=== PATIENT | male | born 1980 | race Caucasian/White ===

== ENCOUNTER 2024-05-25 00:02 | Inpatient (IN) ==
[2024-05-25] MEDS: LORazepam 1 MG/1 ML SYR ED Inj Use ONE ×2 (00:22→01:00)
--- NOTE | 2024-05-25 00:22 | Emergency Department Note ---
Impression & Plan Alcohol withdrawal seizure with delirium, Hypomagnesemia Admit to the [facility] ED Provider Note NAME: LEONARD PUGA AGE: 43 SEX: Male INFORMANT: Patient ED PROVIDER(S): Mahogany Mckinnon DO CHIEF COMPLAINT: seizure PLAN: Disposition: admit to the [facility] MEDICAL DECISION MAKING: this is a 43-year-old male patient who presents to the emergency department after his girlfriend states that he had a seizure while in bed. EMS was called to the home and he was found to be in a postictal state. Blood sugar was 182. He has no history of seizures. Patient initially denied heavy alcohol use or daily alcohol use but once the girlfriend arrived and explained the patient drinks three fourths of a 1/5 of liquor a day. He has been doing this for a couple of months now. He did only have approximately 6 shots this morning and therefore his seizures are most likely alcohol withdrawal seizures. Laboratory studies reveal no leukocytosis or anemia. Glucose was 181. Magnesium was low at 1.4. Total bilirubin was elevated at 1.4. AST was 106 ALT is 98. As a result of the patient's seizures, he did suffer some trauma to the left side of his tongue and had bleeding from the mouth. Patient did suffer 2 falls in the bathroom in the girlfriend was unsure whether or not he struck his head. He went for CT scan of the brain to rule out trauma. No obvious trauma was noted although the scan was limited. Patient was treated with IV benzodiazepines and IV Keppra here in the ER. Seizure precautions were taken. Patient was monitored very closely. Care/management discussed with: nursing services manager, [facility] Hospitalist and the patient's Triage Nursing notes: reviewed and agree With them. Vital Signs: reviewed and remarkable for tachycardia Additional History obtained from: EMS and the patient's who is at the bedside Chronic Medical/Social Conditions affecting care: alcohol abuse Differential Diagnosis: drug abuse, alcohol abuse, alcohol withdrawal, epilepsy, intracranial hemorrhage, intracranial process, electrolyte abnormality Diagnostics, independently interpreted by me: ECG: sinus tachycardia at a rate of [address] segment elevation or signs of ischemia. There is no ectopy. Cardiac Monitoring: Sinus tachycardia at a rate of 112 Imaging studies: CT scan of the brain: As per stat rad HPI: 43 year old Male arrives for evaluation of seizure. EMS brought the patient to the emergency department for evaluation of seizure. Apparently the patient had a seizure during his sleep. It lasted for 1 minute. He then vomited. EMS found him in a postictal state. Girlfriend gave the history that he had been dizzy throughout the day. He fell in the shower twice. Patient has no recollection of this. He did have 6 shots around 11 AM this morning. Patient denies any other significant alcohol use other than once a week. 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 Pupils are Dilated round, and sluggishly reactive to light. Extraocular eye muscles are intact, and sclera are anicteric. Nose - moist nasal mucosa without discharge. Mouth - moist buccal mucosa. Oropharynx is nonerythematous and there is no tonsillar exudate or edema noted. there is trauma to the left side of his tongue. Neck: Supple; no JVD or cervical lymphadenopathy Heart: tachycardic rate and rhythm. There is a normal S1 and S2 with no murmurs, clicks, or gallops appreciated. Lungs: Clear to auscultation bilaterally with no wheezes, rales, or rhonchi. Abdomen: Soft, completely nontender, nondistended, with good bowel sounds. There are no palpable pulsatile masses or hepatosplenomegaly. There is no guarding, rigidity, or rebound noted. Extremities: No evidence of cyanosis, clubbing, or edema. There are easily palpable peripheral pulses. Skin: warm and dry with good turgor and no rashes. Multiple tattoos. Back: There is a contusion noted to the left scapula. Emergency department treatment: athletic monitor, IV normal saline bolus, supplemental oxygen, IV Ativan x 2, IV Keppra bolus, IV magnesium, IV banana bag emergency department course: the patient was evaluated in room C-4. A complete history and physical was performed. An order was placed for continuous cardiac monitoring. The patient was in a sinus tachycardia at a rate of 112. Seizure precautions were taken. Laboratory studies were drawn. The patient had a tonic-clonic seizure. Patient did bite his tongue again there was active bleeding from his mouth. The blood was cleared away from the mouth. He was given 2 mg of IV Ativan. He was loaded with IV Keppra. Patient was given an additional 1 mg of IV Ativan prior to going for CAT scan. He went for CT scan of the brain. Patient's girlfriend arrived at the bedside and was able to give a more detailed history for the patient. Patient was started on IV banana bag. He was started on IV magnesium as well as an IV normal saline drip. I discussed the case with the [facility] Hospitalist. I have personally spent greater than 65 minutes of critical care time in the direct management of this patient. This includes bedside care, interpretation of diagnostic studies, and testing, discussion with consultants, patient, and family members, and other required patient management activities. This 65 minutes is in excess of all separately billable procedures. Past Med/Surg History Problem List (Updated 05/25/24 @ 02:02 by Mahogany Mckinnon DO) Hypomagnesemia (Acute) Alcohol withdrawal seizure with delirium (Acute) Medical History No significant past medical history Surgical History No history of previous surgery Social History Smoking Status: Current every day smoker Preferred Language: Turkish Feels Safe at Home: Yes Allergies Allergies Allergy/AdvReac Type Severity Reaction Status Date / Time No Known Allergies Allergy Verified 05/25/24 00:35 Home Meds Home Medications Medication Instructions Recorded Confirmed No Known Home Medications 05/25/24 05/25/24 Results & Data (ED) Vital Signs Vital Signs - 24 hr 05/24/24 23:52 05/25/24 00:10 05/25/24 00:14 Temperature 37.2 C Temperature Source Oral Pulse Rate 118 H Pulse Rate from SpO2 Sensor Pulse Rhythm Regular Pulse Strength Normal Respiratory Rate 20 Respiratory Effort / Characteristics Non-Labored Respiratory Depth Normal Respiratory Pattern Regular Blood Pressure 165/105 H 157/106 H Blood Pressure Mean 125 125 Blood Pressure Position Lying Pulse Oximetry 93 96 Oxygen Delivery Method Room Air Room Air Sepsis Recent Fever Within 48 Hours No Sepsis New/Unexplained Change in Mental Status No Sepsis Action Taken by Nursing No Action Required 05/25/24 00:14 05/25/24 00:15 05/25/24 00:18 Temperature Temperature Source Pulse Rate 123 H Pulse Rate from SpO2 Sensor 122 H Pulse Rhythm Pulse Strength Respiratory Rate 20 Respiratory Effort / Characteristics Respiratory Depth Respiratory Pattern Blood Pressure 165/105 H Blood Pressure Mean 129 Blood Pressure Position Pulse Oximetry 96 94 Oxygen Delivery Method Room Air Room Air Sepsis Recent Fever Within 48 Hours Sepsis New/Unexplained Change in Mental Status Sepsis Action Taken by Nursing 05/25/24 00:22 05/25/24 00:24 05/25/24 00:30 Temperature Temperature Source Pulse Rate 129 H 89 Pulse Rate from SpO2 Sensor Pulse Rhythm Pulse Strength Respiratory Rate Respiratory Effort / Characteristics Respiratory Depth Respiratory Pattern Blood Pressure 174/99 H Blood Pressure Mean 119 Blood Pressure Position Pulse Oximetry Oxygen Delivery Method Sepsis Recent Fever Within 48 Hours Sepsis New/Unexplained Change in Mental Status Sepsis Action Taken by Nursing 05/25/24 00:32 05/25/24 00:38 05/25/24 00:39 Temperature Temperature Source Pulse Rate 119 H 120 H Pulse Rate from SpO2 Sensor 121 H Pulse Rhythm Pulse Strength Respiratory Rate 18 Respiratory Effort / Characteristics Respiratory Depth Respiratory Pattern Blood Pressure Blood Pressure Mean Blood Pressure Position Pulse Oximetry 96 96 Oxygen Delivery Method Room Air Room Air Sepsis Recent Fever Within 48 Hours Sepsis New/Unexplained Change in Mental Status Sepsis Action Taken by Nursing 05/25/24 00:58 05/25/24 01:00 05/25/24 01:09 Temperature Temperature Source Pulse Rate 120 H 111 H Pulse Rate from SpO2 Sensor 117 H 110 H Pulse Rhythm Pulse Strength Respiratory Rate 16 19 Respiratory Effort / Characteristics Respiratory Depth Respiratory Pattern Blood Pressure 149/104 H Blood Pressure Mean 113 Blood Pressure Position Pulse Oximetry 93 94 Oxygen Delivery Method Room Air Sepsis Recent Fever Within 48 Hours Sepsis New/Unexplained Change in Mental Status Sepsis Action Taken by Nursing 05/25/24 01:15 Temperature Temperature Source Pulse Rate 117 H Pulse Rate from SpO2 Sensor Pulse Rhythm Pulse Strength Respiratory Rate 19 Respiratory Effort / Characteristics Respiratory Depth Respiratory Pattern Blood Pressure 139/100 Blood Pressure Mean 111 Blood Pressure Position Pulse Oximetry 95 Oxygen Delivery Method Room Air Sepsis Recent Fever Within 48 Hours Sepsis New/Unexplained Change in Mental Status Sepsis Action Taken by Nursing Laboratory Data 05/25/24 00:14 05/25/24 00:14 Lab Results 05/25/24 05/25/24 Range/Units 00:14 01:36 WBC 7.76 (4.8-10.8) K/ul RBC 4.46 L (4.70-6.10) M/uL Hgb 15.8 (14.0-18.0) g/dl Hct 43.6 (42.0-52.0) % MCV 97.8 (80.0-100.0) fL MCH 35.4 H (25.0-34.0) pg MCHC 36.2 H (32.0-36.0) g/dL RDW Std Deviation 53.4 H (36.4-46.3) fL RDW Coeff of Keven 14.8 H (11.5-14.5) % Plt Count 124 L (130-400) K/uL MPV 9.8 (9.4-12.4) fL Immature Gran % (Auto) 1.0 % Neut % (Auto) 81.0 % Lymph % (Auto) 7.7 % Norman % (Auto) 9.5 % Eos % (Auto) 0.0 % Baso % (Auto) 0.8 % Neut # (Auto) 6.28 (1.40-6.50) K/uL Lymph # (Auto) 0.60 L (1.20-3.40) K/uL Norman # (Auto) 0.74 H (0.11-0.59) K/uL Eos # (Auto) 0.00 (0.00-0.50) K/uL Baso # (Auto) 0.06 (0.00-0.20) K/uL Immature Gran # (Auto) 0.08 (0.01-0.20) K/uL Sodium 135 L (136-145) mmol/L Potassium 3.6 (3.5-5.1) mmol/L Chloride 100 (98-107) mmol/L Carbon Dioxide 23 (21-32) mmol/L Anion Gap 12 H (3-11) BUN 12 (6-23) mg/dl Creatinine 0.72 (0.6-1.4) mg/dl Est Cr Clr Drug Dosing Not Reportable Est GFR ( Amer) 130.6 ml/min Est GFR (Non-Af Amer) 112.7 ml/min BUN/Creatinine Ratio 16.7 (10-20) Glucose 181 H (70-99(Fasting)) mg/dl Calcium 9.3 (8.6-10.3) mg/dl Magnesium 1.4 L (1.7-2.4) mg/dl Total Bilirubin 1.4 H (0.2-1.0) mg/dl AST 106 H (13-39) U/L ALT 98 H (7-52) U/L Alkaline Phosphatase 77 (34-104) U/L Total Protein 7.3 (6.0-8.3) gm/dl Albumin 4.3 (3.4-5.0) gm/dl Globulin 3.0 (2.5-4.0) gm/dl Albumin/Globulin Ratio 1.4 (0.9-2) Urine Color Yellow Urine Appearance Clear (Clear) Urine pH 7.0 (4.5-7.5) Ur Specific Buckner 1.019 (1.000-1.030) Urine Protein 3+ H (Negative) Urine Glucose (UA) Trace H (Negative) Urine Ketones 1+ H (Negative) Urine Blood 3+ H (Negative) Urine Nitrite Negative (Negative) Urine Bilirubin Negative (Negative) Urine Urobilinogen Negative (Negative) Ur Leukocyte Esterase Negative (Negative) Urine WBC (Auto) 0-5 (0-5) /hpf Urine RBC (Auto) 6-10 H (0-2) /hpf U Hyaline Cast (Auto) 3-5 H (0-2) /lpf U Epithel Cells (Auto) 0-2 (0-2) /hpf Urine Bacteria (Auto) None Seen (None Seen) Administered Medications Multivitamins 10 ml/ Thiamine HCl 100 mg/ Folic Acid 1 mg/Sodium Chloride 1,011.2 mls @ 500 mls/hr IV .Q2H2M ONE Stop: 05/25/24 02:43 Last Admin: 05/25/24 01:10 Dose: 500 mls/hr Documented By: JT Discontinued Medications Sodium Chloride (Nss) 500 mls @ 999 mls/hr IV .Q31M ONE Stop: 05/25/24 01:12 Last Admin: 05/25/24 01:01 Dose: 999 mls/hr Documented By: TRACY Magnesium Sulfate/Dextrose (Magnesium Sulfate / D5w) 1 gm in 100 mls @ 100 mls/hr IV NOW STA Stop: 05/25/24 01:50 Last Admin: 05/25/24 01:01 Dose: 100 mls/hr Documented By: TRACY Levetiracetam (Levetiracetam 500 Mg/5 Ml Vial) 1,000 mg IV NOW STA Stop: 05/25/24 00:28 Last Admin: 05/25/24 00:35 Dose: 1,000 mg Documented By: TRACY Lorazepam (Lorazepam 1 Mg/1 Ml Syr Ed Inj Use) Confirm Administered Dose 2 mg .ROUTE .STK-MED ONE Stop: 05/25/24 00:22 Last Admin: 05/25/24 00:22 Dose: 2 mg Documented By: TARCY Lorazepam (Lorazepam 1 Mg/1 Ml Syr Ed Inj Use) Confirm Administered Dose 1 mg .ROUTE .STK-MED ONE Stop: 05/25/24 00:43 Last Admin: 05/25/24 01:00 Dose: Not Given Documented By: TRACY Lorazepam (Lorazepam 1 Mg/1 Ml Syr Ed Inj Use) 1 mg IV ONE STA Stop: 05/25/24 00:43 Last Admin: 05/25/24 00:42 Dose: 1 mg Documented By: TRACY Lorazepam (Lorazepam 1 Mg/1 Ml Syr Ed Inj Use) 2 mg IV ONE STA Stop: 05/25/24 01:09 Last Admin: 05/25/24 01:13 Dose: Not Given Documented By: TRACY Imaging Data Radiologist's Impression: Head CT 05/25/24 00:15 Exam(s): CT HEAD Without Contrast EXAM: CT Head Without Intravenous Contrast CLINICAL HISTORY: Reason for exam: seizure. TECHNIQUE: Axial computed tomography images of the head/brain without intravenous contrast. Automated exposure control was utilized for the study. A dose lowering technique was utilized adhering to the principles of ALARA. COMPARISON: No relevant prior studies available. FINDINGS: Brain: Exam severely limited secondary to patient motion artifact. There are a whole portions of the brain parenchyma which are not seen projected toward the skull vertex. Visualized portions of the brain parenchyma however are negative for acute intracranial hemorrhage or infarct. No significant white matter disease. Ventricles: Unremarkable. No ventriculomegaly. Bones/joints: Unremarkable. No acute fracture. Soft tissues: Unremarkable. Sinuses: Unremarkable as visualized. No acute sinusitis. Mastoid air cells: Unremarkable as visualized. No mastoid effusion. IMPRESSION: Exam severely limited as described above Within the visualized portions of the brain parenchyma no acute intracranial abnormalities identified. Recommend repeat CT scan if there is continued clinical concern for acute intracranial abnormality. Electronically signed by: Rio Valles MD 05/25/24 01:24 AM Discharge Plan Visit Data Chief Complaint: Seizure Stated Complaint: Seizure, Dizziness, Fall ED Provider: Mahogany Mckinnon Discharge Problem: Alcohol withdrawal seizure with delirium, Hypomagnesemia Forms Stand Alone Forms: [facility] Prescriptions Prescriptions: No Action No Known Home Medications Referrals Referrals: PCP,NO [Primary Care Provider] -
[2024-05-25 00:26] LABS: Basophils # (auto) 0.06 K/uL (0.00-0.20); Basophils % (auto) 0.8 %; Hematocrit (blood only) 43.6 % (42.0-52.0); Hemoglobin 15.8 g/dl (14.0-18.0); Immature Granulocytes # (auto) 0.08 K/uL (0.01-0.20); Lymphocytes % (auto) 7.7 %; Mean Corpuscular Hemoglobin 35.4 pg (25.0-34.0); Mean Corpuscular Hgb Conc 36.2 g/dL (32.0-36.0); Mean Corpuscular Volume 97.8 fL (80.0-100.0); Mean Platelet Volume 9.8 fL (9.4-12.4); Monocytes # (auto) 0.74 K/uL (0.11-0.59); Monocytes % (auto) 9.5 %; Neutrophils # (auto) 6.28 K/uL (1.40-6.50); Platelet Count 124 K/uL (130-400); RDW Coefficient of Variation 14.8 % (11.5-14.5); RDW Standard Deviation 53.4 fL (36.4-46.3); Red Blood Count 4.46 M/uL (4.70-6.10); White Blood Count 7.76 K/ul (4.8-10.8)
[2024-05-25] MEDS: levETIRAcetam 500 MG/5 ML VIAL IV STA (00:35)
[2024-05-25] MEDS: LORazepam 1 MG/1 ML SYR ED Inj Use IV STA ×2 (00:42→01:13)
[2024-05-25 00:45] LABS: Alanine Aminotransferase 98 U/L (7-52); Albumin Globulin Ratio 1.4 (0.9-2); Albumin Level 4.3 gm/dl (3.4-5.0); Alkaline Phosphatase 77 U/L (34-104); Anion Gap 12 (3-11); Aspartate Aminotransferase 106 U/L (13-39); BUN Creatinine Ratio 16.7 (10-20); Bilirubin,Total 1.4 mg/dl (0.2-1.0); Blood Urea Nitrogen 12 mg/dl (6-23); Calcium 9.3 mg/dl (8.6-10.3); Carbon Dioxide 23 mmol/L (21-32); Chloride 100 mmol/L (98-107); Est GFR (African American) 130.6 ml/min; Est GFR (Non-African American) 112.7 ml/min; Glucose 181 mg/dl (70-99(Fasting)); Magnesium 1.4 mg/dl (1.7-2.4); Potassium 3.6 mmol/L (3.5-5.1); Sodium 135 mmol/L (136-145); Total Protein 7.3 gm/dl (6.0-8.3)
[2024-05-25] MEDS: MAGNESIUM SULFATE / D5W 1 GM/100 ML BAG IV STA (01:01)
[2024-05-25] MEDS: SODIUM CHLORIDE 0.9% 500 ML IV ONE (01:01)
[2024-05-25] MEDS: MULTI-VITAMIN INFUSION 10 ML, THIAMINE HCL 100 MG, FOLIC ACID 1 MG in SODIUM CHLORIDE 0... IV ONE (01:10)
--- NOTE | 2024-05-25 01:24 | CT Scan Report ---
Exam(s): CT HEAD Without Contrast EXAM: CT Head Without Intravenous Contrast CLINICAL HISTORY: Reason for exam: seizure. TECHNIQUE: Axial computed tomography images of the head/brain without intravenous contrast. Automated exposure control was utilized for the study. A dose lowering technique was utilized adhering to the principles of ALARA. COMPARISON: No relevant prior studies available. FINDINGS: Brain: Exam severely limited secondary to patient motion artifact. There are a whole portions of the brain parenchyma which are not seen projected toward the skull vertex. Visualized portions of the brain parenchyma however are negative for acute intracranial hemorrhage or infarct. No significant white matter disease. Ventricles: Unremarkable. No ventriculomegaly. Bones/joints: Unremarkable. No acute fracture. Soft tissues: Unremarkable. Sinuses: Unremarkable as visualized. No acute sinusitis. Mastoid air cells: Unremarkable as visualized. No mastoid effusion. IMPRESSION: Exam severely limited as described above Within the visualized portions of the brain parenchyma no acute intracranial abnormalities identified. Recommend repeat CT scan if there is continued clinical concern for acute intracranial abnormality. Electronically signed by: Rio Valles MD 05/25/24 01:24 AM
[2024-05-25 01:48] LABS: Appearance Urine Clear (Clear); Bacteria Urine Automated None Seen (None Seen); Bilirubin Urine Negative (Negative); Blood Urine 3+ (Negative); Color Urine Yellow; Epithelial Cell Urine Auto 0-2 /hpf (0-2); Glucose Urine UA Trace (Negative); Ketones Urine 1+ (Negative); Leukocyte Esterase Urine Negative (Negative); Nitrite Urine Negative (Negative); Protein Urine 3+ (Negative); Specific Gravity Urine 1.019 (1.000-1.030); Urobilinogen Urine Negative (Negative); WBC Urine Automated 0-5 /hpf (0-5)
[2024-05-25 02:18] LABS: Amphetamines+Metham, Urine Neg (Neg); Barbiturates, Urine Neg (Neg); Benzodiazepine, Urine Neg (Neg); Cocaine, Urine Neg (Neg); Fentanyl, Urine Neg (Neg); MDMA (Ecstacy), Urine Neg (Neg); Marijuana, Urine Neg (Neg); Methadone, Urine Neg (Neg); Opiate, Urine Neg (Neg); Phencyclidine, Urine Neg (Neg)
[2024-05-25] MEDS: chlordiazePOXIDE HCl 25 MG CAP PO ONE (04:13)
--- NOTE | 2024-05-25 05:46 | History & Physical Report ---
Date of Service May 25, 2024 Assessment & Plan (1) Alcohol withdrawal seizure with delirium: Plan: 43-year-old male with no significant past medical history with ongoing alcoholism drinking about 3/4th bottle of vodka daily for last 2 and half months and drank only 6 shots of vodka today, presents with seizure episodes. As per they went to sleep around 9:30 PM and around 10:30 PM when she woke up she saw her having seizure episode with eyes rolled up and shaking it lasting for last about 30 seconds. And patient did not know that he had this episode. After 10 minutes again he had another episode and he bit his tongue and blood was coming from his mouth, this episode also lasted for 30 minutes. There was no incontinence. called EMS and was brought in here. Earlier in the day patient fell in the bathroom couple of times and patient complains some soreness in his lower back. In the ER patient initially was treated with IV Keppra but as the came and told about alcoholism he was given IV benzodiazepines. CT head was poor study but was okay. Initially patient was confused. But currently more alert and awake and says he is feeling better. He knows that he is in the hospital. He knows his name. Knows the year but could not tell the month. Denies any headache. Denies any blurred vision. No runny nose or sore throat or cough. No fevers. No chest pain or shortness of breath. No nausea. No abdominal pain. Normal bowel and bladder movements. As per while ambulating was very shaky. Patient wanted to go home but when told about the complications of the alcohol seizures he agreed to stay. Alcohol withdrawal seizures Heavy drinking for last 2 and half months Drank only 6 shots yesterday as per Had seizures with biting of the tongue CT head poor study but okay Initially received IV Keppra and later IV Ativan in the ER Received banana bag Will continue alcohol withdrawal protocol with Librium and IV Ativan as needed IV Ativan 2 mg every 2 hours as needed for breakthrough seizures Seizure precautions Urine drug screen negative. Alcohol level less than 10 EEG Neurology consult for further recommendations Close monitoring telemetry Hypomagnesia Replaced Follow labs Thrombocytopenia Platelets 124 From alcoholism Will follow labs Mild elevation of LFTs Follow repeat labs Tobacco abuse Nicotine patch Counseling DVT prophylaxis SCDs and heparin subcu Monitor platelets Disposition Telemetry Full code History of Present Illness Chief Complaint: Alcohol withdrawal seizures Primary Care Provider: NO PCP 43-year-old male with no significant past medical history with ongoing alcoholism drinking about 3/4th bottle of vodka daily for last 2 and half months and drank only 6 shots of vodka today, presents with seizure episodes. As per they went to sleep around 9:30 PM and around 10:30 PM when she woke up she saw her having seizure episode with eyes rolled up and shaking it lasting for last about 30 seconds. And patient did not know that he had this episode. After 10 minutes again he had another episode and he bit his tongue and blood was coming from his mouth, this episode also lasted for 30 minutes. There was no incontinence. called EMS and was brought in here. Earlier in the day patient fell in the bathroom couple of times and patient complains some soreness in his lower back. In the ER patient initially was treated with IV Keppra but as the came and told about alcoholism he was given IV benzodiazepines. CT head was poor study but was okay. Initially patient was confused. But currently more alert and awake and says he is feeling better. He knows that he is in the hospital. He knows his name. Knows the year but could not tell the month. Denies any headache. Denies any blurred vision. No runny nose or sore throat or cough. No fevers. No chest pain or shortness of breath. No nausea. No abdominal pain. Normal bowel and bladder movements. As per while ambulating was very shaky. Patient wanted to go home but when told about the complications of the alcohol seizures he agreed to stay. Past med history. None as per patient. Past surgical history none as per patient. Social history. Smoking 1 pack a day for last 16 years. Currently alcohol drinking 3/4 bottle of vodka since last 2-1/2 months and prior to that he is to drink every other weekend as per . No marijuana, no drugs. Family history. Significant for diabetes as per patient Allergies Allergy/AdvReac Type Severity Reaction Status Date / Time No Known Allergies Allergy Verified 05/25/24 00:35 Home Medications Medication Instructions Recorded Confirmed Type No Known Home Medications 05/25/24 05/25/24 History Past Med/Surg History Problem List (Updated 05/25/24 @ 02:02 by Mahogany Mckinnon DO) Hypomagnesemia (Acute) Alcohol withdrawal seizure with delirium (Acute) Medical History No significant past medical history Surgical History No history of previous surgery Social History Smoking Status: Current every day smoker Preferred Language: Occitan Feels Safe at Home: Yes Review of Systems Review of Systems: All systems reviewed & are unremarkable except as noted in HPI & below Physical Exam Physical Exam: General- Not in distress Head- atraumatic Eyes- PERRL. ENT- oropharynx clear. Dry blood seen around mouth Neck- supple, no JVD. Lungs- clear to auscultation no wheezing or crackles Heart- regular rhythm; no murmur, no gallop. Abdomen- normal bowel sounds, soft, nontender, no distension. Extremities- no pretibial edema, no erythema seen Neuro- alert, oriented ; PERRL, no facial palsy; no dysarthria; moves extremities. Skin- warm & dry Results & Data Results & Data Vital Signs (Past 12 Hours) Vital Signs Temp Pulse Resp BP Pulse Ox O2 Del Method 05/25/24 05:00 136/93 05/25/24 04:57 93 H 24 97 05/25/24 04:45 93 H 23 137/99 96 Room Air 05/25/24 04:30 148/101 H 05/25/24 04:16 125 H 24 160/99 H 97 Room Air 05/25/24 04:12 112 H 17 05/25/24 04:09 106 H 20 05/25/24 03:45 154/106 H 05/25/24 03:15 101 H 19 149/105 H 95 Room Air 05/25/24 02:45 97 H 23 141/94 H 95 Room Air 05/25/24 02:30 112 H 23 151/95 H 93 Room Air 05/25/24 02:15 101 H 21 138/97 97 Room Air 05/25/24 02:12 104 H 15 97 05/25/24 02:00 105 H 19 150/95 H 94 Room Air 05/25/24 01:51 110 H 22 94 05/25/24 01:45 108 H 23 155/97 H 92 Room Air 05/25/24 01:42 105 H 19 95 05/25/24 01:30 113 H 21 144/96 H 92 Room Air 05/25/24 01:24 117 H 20 95 05/25/24 01:15 117 H 19 139/100 95 Room Air 05/25/24 01:09 111 H 19 94 05/25/24 01:00 120 H 16 93 Room Air 05/25/24 00:58 149/104 H 05/25/24 00:39 120 H 18 96 Room Air 05/25/24 00:38 119 H 05/25/24 00:32 96 Room Air 05/25/24 00:30 174/99 H 05/25/24 00:24 89 05/25/24 00:22 129 H 05/25/24 00:18 123 H 20 94 Room Air 05/25/24 00:15 165/105 H 05/25/24 00:14 96 Room Air 05/25/24 00:14 96 Room Air 05/25/24 00:10 157/106 H 05/24/24 23:52 37.2 C 118 H 20 165/105 H 93 Room Air Diagnostic Findings Laboratory Results WBC 7.76 K/ul (4.8-10.8) 05/25/24 00:14 RBC 4.46 M/uL (4.70-6.10) L 05/25/24 00:14 Hgb 15.8 g/dl (14.0-18.0) 05/25/24 00:14 Hct 43.6 % (42.0-52.0) 05/25/24 00:14 MCV 97.8 fL (80.0-100.0) 05/25/24 00:14 MCH 35.4 pg (25.0-34.0) H 05/25/24 00:14 MCHC 36.2 g/dL (32.0-36.0) H 05/25/24 00:14 RDW Std Deviation 53.4 fL (36.4-46.3) H 05/25/24 00:14 RDW Coeff of Keven 14.8 % (11.5-14.5) H 05/25/24 00:14 Plt Count 124 K/uL (130-400) L 05/25/24 00:14 MPV 9.8 fL (9.4-12.4) 05/25/24 00:14 Immature Gran % (Auto) 1.0 % 05/25/24 00:14 Neut % (Auto) 81.0 % 05/25/24 00:14 Lymph % (Auto) 7.7 % 05/25/24 00:14 [place] % (Auto) 9.5 % 05/25/24 00:14 Eos % (Auto) 0.0 % 05/25/24 00:14 Baso % (Auto) 0.8 % 05/25/24 00:14 Neut # (Auto) 6.28 K/uL (1.40-6.50) 05/25/24 00:14 Lymph # (Auto) 0.60 K/uL (1.20-3.40) L 05/25/24 00:14 [place] # (Auto) 0.74 K/uL (0.11-0.59) H 05/25/24 00:14 Eos # (Auto) 0.00 K/uL (0.00-0.50) 05/25/24 00:14 Baso # (Auto) 0.06 K/uL (0.00-0.20) 05/25/24 00:14 Immature Gran # (Auto) 0.08 K/uL (0.01-0.20) 05/25/24 00:14 Sodium 135 mmol/L (136-145) L 05/25/24 00:14 Potassium 3.6 mmol/L (3.5-5.1) 05/25/24 00:14 Chloride 100 mmol/L (98-107) 05/25/24 00:14 Carbon Dioxide 23 mmol/L (21-32) 05/25/24 00:14 Anion Gap 12 (3-11) H 05/25/24 00:14 BUN 12 mg/dl (6-23) 05/25/24 00:14 Creatinine 0.72 mg/dl (0.6-1.4) 05/25/24 00:14 Est Cr Clr Drug Dosing Not Reportable 05/25/24 00:14 Est GFR ( Amer) 130.6 ml/min 05/25/24 00:14 Est GFR (Non-Af Amer) 112.7 ml/min 05/25/24 00:14 BUN/Creatinine Ratio 16.7 (10-20) 05/25/24 00:14 Glucose 181 mg/dl (70-99(Fasting)) H 05/25/24 00:14 Calcium 9.3 mg/dl (8.6-10.3) 05/25/24 00:14 Magnesium 1.4 mg/dl (1.7-2.4) L 05/25/24 00:14 Total Bilirubin 1.4 mg/dl (0.2-1.0) H 05/25/24 00:14 AST 106 U/L (13-39) H 05/25/24 00:14 ALT 98 U/L (7-52) H 05/25/24 00:14 Alkaline Phosphatase 77 U/L (34-104) 05/25/24 00:14 Total Protein 7.3 gm/dl (6.0-8.3) 05/25/24 00:14 Albumin 4.3 gm/dl (3.4-5.0) 05/25/24 00:14 Globulin 3.0 gm/dl (2.5-4.0) 05/25/24 00:14 Albumin/Globulin Ratio 1.4 (0.9-2) 05/25/24 00:14 Urine Color Yellow 05/25/24 01:36 Urine Appearance Clear (Clear) 05/25/24 01:36 Urine pH 7.0 (4.5-7.5) 05/25/24 01:36 Ur Specific [place] 1.019 (1.000-1.030) 05/25/24 01:36 Urine Protein 3+ (Negative) H 05/25/24 01:36 Urine Glucose (UA) Trace (Negative) H 05/25/24 01:36 Urine Ketones 1+ (Negative) H 05/25/24 01:36 Urine Blood 3+ (Negative) H 05/25/24 01:36 Urine Nitrite Negative (Negative) 05/25/24 01:36 Urine Bilirubin Negative (Negative) 05/25/24 01:36 Urine Urobilinogen Negative (Negative) 05/25/24 01:36 Ur Leukocyte Esterase Negative (Negative) 05/25/24 01:36 Urine WBC (Auto) 0-5 /hpf (0-5) 05/25/24 01:36 Urine RBC (Auto) 6-10 /hpf (0-2) H 05/25/24 01:36 U Hyaline Cast (Auto) 3-5 /lpf (0-2) H 05/25/24 01:36 U Epithel Cells (Auto) 0-2 /hpf (0-2) 05/25/24 01:36 Urine Bacteria (Auto) None Seen (None Seen) 05/25/24 01:36 Urine Opiates Screen Neg (Neg) 05/25/24 01:36 Ur Methadone, Qual Neg (Neg) 05/25/24 01:36 Urine Fentanyl Screen Neg (Neg) 05/25/24 01:36 Urine Barbiturates Neg (Neg) 05/25/24 01:36 Ur Phencyclidine (PCP) Neg (Neg) 05/25/24 01:36 U Amphetamin/Meth Scrn Neg (Neg) 05/25/24 01:36 MDMA (Ecstasy) Screen Neg (Neg) 05/25/24 01:36 U Benzodiazepines Scrn Neg (Neg) 05/25/24 01:36 Ur Cocaine Metabolite Neg (Neg) 05/25/24 01:36 U Marijuana (THC) Screen Neg (Neg) 05/25/24 01:36 Ethyl Alcohol mg/dL < 10.0 mg/dl (<10.0) 05/25/24 01:[address] 05/25/24 00:15 Exam(s): CT HEAD Without Contrast EXAM: CT Head Without Intravenous Contrast CLINICAL HISTORY: Reason for exam: seizure. TECHNIQUE: Axial computed tomography images of the head/brain without intravenous contrast. Automated exposure control was utilized for the study. A dose lowering technique was utilized adhering to the principles of ALARA. COMPARISON: No relevant prior studies available. FINDINGS: Brain: Exam severely limited secondary to patient motion artifact. There are a whole portions of the brain parenchyma which are not seen projected toward the skull vertex. Visualized portions of the brain parenchyma however are negative for acute intracranial hemorrhage or infarct. No significant white matter disease. Ventricles: Unremarkable. No ventriculomegaly. Bones/joints: Unremarkable. No acute fracture. Soft tissues: Unremarkable. Sinuses: Unremarkable as visualized. No acute sinusitis. Mastoid air cells: Unremarkable as visualized. No mastoid effusion. IMPRESSION: Exam severely limited as described above Within the visualized portions of the brain parenchyma no acute intracranial abnormalities identified. Recommend repeat CT scan if there is continued clinical concern for acute intracranial abnormality. Electronically signed by: Rio Valles MD 05/25/24 01:24 AM ECG Additional Comments: ECG. Sinus tachycardia rate of 115. QTc 448 Code Status & VTE Plan VTE Prophylaxis Plan VTE Prophylaxis will be ordered: Yes
[2024-05-25] MEDS: MAGNESIUM SULFATE / D5W 1 GM/100 ML BAG IV ONE (06:16)
[2024-05-25] MEDS ORDERED: chlordiazePOXIDE ALCOHOL WITHDRAWL 50MG PO STA (09:02)
[2024-05-25] MEDS ORDERED: NITROGLYCERIN SL 0.4 MG/TAB TAB SL PRN (09:02)
[2024-05-25] MEDS ORDERED: LORazepam 2 MG in SYRINGE 1 ML IV PRN (09:02)
[2024-05-25] MEDS ORDERED: Ativan IV Alcohol Withdrawal--Active Protocol IV PRN (09:02)
[2024-05-25] MEDS ORDERED: LORazepam 2 MG/1 ML VIAL IV PRN (09:18)
[2024-05-25 09:30] LABS: Basophils # (auto) 0.04 K/uL (0.00-0.20); Basophils % (auto) 0.6 %; Eosinophils # (auto) 0.01 K/uL (0.00-0.50); Eosinophils % (auto) 0.1 %; Hematocrit (blood only) 41.2 % (42.0-52.0); Hemoglobin 14.5 g/dl (14.0-18.0); Immature Granulocytes # (auto) 0.03 K/uL (0.01-0.20); Immature Granulocytes % (auto) 0.4 %; Lymphocytes # (auto) 0.72 K/uL (1.20-3.40); Mean Corpuscular Hemoglobin 34.9 pg (25.0-34.0); Mean Corpuscular Hgb Conc 35.2 g/dL (32.0-36.0); Mean Platelet Volume 9.9 fL (9.4-12.4); Monocytes # (auto) 1.01 K/uL (0.11-0.59); Monocytes % (auto) 14.1 %; Neutrophils # (auto) 5.37 K/uL (1.40-6.50); Neutrophils % (auto) 74.8 %; Platelet Count 105 K/uL (130-400); RDW Coefficient of Variation 14.8 % (11.5-14.5); Red Blood Count 4.16 M/uL (4.70-6.10); White Blood Count 7.18 K/ul (4.8-10.8)
[2024-05-25 09:44] LABS: BUN Creatinine Ratio 14.1 (10-20); Calcium 8.3 mg/dl (8.6-10.3); Creatinine Clr Calc Pharmacy 136.4 ml/min; Est GFR (African American) 131.3 ml/min; Est GFR (Non-African American) 113.3 ml/min; Magnesium 2.1 mg/dl (1.7-2.4); Potassium 3.5 mmol/L (3.5-5.1)
[2024-05-25] MEDS: LORazepam 3 MG in SYRINGE 1.5 ML IV PRN (09:45)
[2024-05-25] MEDS: chlordiazePOXIDE HCl 25 MG CAP PO SCH (09:49)
[2024-05-25] MEDS: FOLIC ACID 1 MG in SYRINGE 9.8 ML IV SCH (09:52)
[2024-05-25] MEDS: SODIUM CHLORIDE 0.9% 1,000 ML IV SCH (10:01)
[2024-05-25] MEDS: THIAMINE HCL 100 MG in SYRINGE 9 ML IV SCH (10:01)
[2024-05-25 10:10] LABS: Folate (Folic Acid),Ser orPlas 9.47 ng/ml (>5.38)
--- NOTE | 2024-05-25 10:43 | Neurology Consultation ---
Date of Consultation May 25, 2024 Assessment & Plan (1) Alcohol withdrawal seizure with delirium: Recommend continued CIWA scoring and utilize benzodiazepines Recommend obtain MRI brain with and without contrast Recommend TTE Continue to monitor telemetry closely Recommend ZioPatch at DC if no evidence of arrhythmia during inpatient monitoring Recommend obtain EEG Provide seizure precautions Utilize benzodiazepines emergently for any breakthrough clinical seizure like activity Continue frequent neurological assessments Obtain stat CT brain without contrast for any acute neurological decline Continue to monitor/control blood pressure & blood glucose Continue to monitor renal and hepatic function, keep euvolemic Metabolic workup should include hgbA1c, fasting lipids, homocysteine, TSH, D Dimer, RPR, urinalysis Ok from neurology perspective for VTE prophylaxis PT/OT/SLT to eval and treat Telehealth Consultation Telehealth Information Telehealth Information: I performed this visit using a real-time telehealth connection between my location and the patients location ([facility]). After connecting through interactive tele-video, patient was identified by name and date of and/or wristband check.Patient (or authorized healthcare franchise sales representative) was informed that this was a telemedicine visit and it was being conducted confidentially over secure lines. My office door was closed and no one else was present in the room with me.Patient (or authorized healthcare franchise sales representative) provided consent to proceed with the visit, expressed an understanding of privacy and security of the telemedicine visit, and gave permission to have a hospital franchise sales representative in the room in order to assist with the visit and to conduct portions of the visit, as needed. I informed the patient (or authorized healthcare franchise sales representative) that I reviewed their record and presented the opportunity for them to ask any questions regarding the visit today. The patient agreed to participate. History of Present Illness Reason for Consultation: Seizure Requesting Physician: Dr. Frey Attending Physician: Erasmo Frey MD History of Present Illness 43yo male with significant history of chronic alcoholism. Unfortunately presented after significant other witnessed seizure like activity. Documentation review reveals initially reported as potential for ETOH withdrawal seizure based on recent consumption over the last several months compared with last day leading up to seizure event. There was noted tongue biting. He underwent CT brain without contrast personally reviewed without evidence of acute intracranial abnormality. He has notably been demonstrating significantly elevated CIWA scores and has been medicated with benzodiazepines. There has been no further seizure like activity noted during hospitalization. I have performed televideo consultation. He able to be awakened. RN at bedside notes he was recently given benzo due to CIWA scoring. He will slur words and respond intermittently. No apparent distress or discomfort. Allergies Allergy/AdvReac Type Severity Reaction Status Date / Time No Known Allergies Allergy Verified 05/25/24 00:35 Home Medications Medication Instructions Recorded Confirmed Type No Known Home Medications 05/25/24 05/25/24 History Patient History Medical History No significant past medical history Surgical History No history of previous surgery Social History Smoking Status: Former smoker Tobacco Type: Cigarettes Cigarettes Per Day: 1 PPD; Hx Alcohol Use: Yes Alcohol type: hard liquor Hx Substance Use: No Preferred Language: Thai Ecologist Required: No Beliefs That Will Affect Care: None Current Living Situation: Significant Other Other Information That Helps Us Care for You: No Feels Safe at Home: Yes Safety Concerns: Feels Safe At This Time Physical Exam Neurological Examination: Mental Status: Awake CN testing: I: Unable to accurately assess II:Unable to accurately assess- makes eye contact III/IV/: No evidence of gaze preference, hippus, nystagmus or roving eye m ovements V: Unable to accurately assess VII: Facial movements appear without evidence of asymmetry VIII: Hearing appears grossly intact to loud voice bilaterally IX/X: Difficult to accurately visualize XI: Unable to accurately assess XII: Difficult to reliably assess Motor exam: Moves all extremities spontaneously/antigravity Sensory: Unable to accurately assess Coordination: Deferred Reflexes: Deferred Gait: Deferred Results & Data Vital Signs (Past 12 Hours) Vital Signs Temp Pulse Pulse Resp BP BP Pulse Ox 05/25/24 10:00 36.8 C 100 H 20 142/95 H 97 05/25/24 09:29 36.9 C 100 H 22 171/108 H 97 05/25/24 09:02 05/25/24 08:58 20 124/75 97 05/25/24 08:48 37.3 C 91 H 18 157/106 H 97 05/25/24 07:06 92 H 21 96 05/25/24 06:46 130/91 05/25/24 06:46 130/91 05/25/24 06:46 130/91 05/25/24 06:42 94 H 24 95 05/25/24 06:30 130/82 05/25/24 06:15 99 H 22 130/92 95 05/25/24 06:07 92 H 05/25/24 06:00 89 19 145/82 H 97 05/25/24 05:45 90 22 131/90 94 05/25/24 05:30 93 H 24 125/88 94 05/25/24 05:24 05/25/24 05:15 141/90 H 05/25/24 05:00 136/93 05/25/24 04:57 93 H 24 97 05/25/24 04:45 93 H 23 137/99 96 05/25/24 04:30 148/101 H 05/25/24 04:16 125 H 24 160/99 H 97 05/25/24 04:12 112 H 17 05/25/24 04:09 106 H 20 05/25/24 03:45 154/106 H 05/25/24 03:15 101 H 19 149/105 H 95 05/25/24 02:45 97 H 23 141/94 H 95 05/25/24 02:30 112 H 23 151/95 H 93 05/25/24 02:15 101 H 21 138/97 97 05/25/24 02:12 104 H 15 97 05/25/24 02:00 105 H 19 150/95 H 94 05/25/24 01:51 110 H 22 94 05/25/24 01:45 108 H 23 155/97 H 92 05/25/24 01:42 105 H 19 95 05/25/24 01:30 113 H 21 144/96 H 92 05/25/24 01:24 117 H 20 95 05/25/24 01:15 117 H 19 139/100 95 05/25/24 01:09 111 H 19 94 05/25/24 01:00 120 H 16 93 05/25/24 00:58 149/104 H 05/25/24 00:39 120 H 18 96 05/25/24 00:38 119 H 05/25/24 00:32 96 05/25/24 00:30 174/99 H 05/25/24 00:24 89 05/25/24 00:22 129 H 05/25/24 00:18 123 H 20 94 05/25/24 00:15 165/105 H 05/25/24 00:14 96 05/25/24 00:14 96 05/25/24 00:10 157/106 H 05/24/24 23:52 37.2 C 118 H 20 165/105 H 93 Pulse Ox O2 Del Method O2 Del Method 05/25/24 10:00 Room Air 05/25/24 09:29 Room Air 05/25/24 09:02 97 Room Air 05/25/24 08:58 Room Air 05/25/24 08:48 Room Air 05/25/24 07:06 05/25/24 06:46 05/25/24 06:46 05/25/24 06:46 05/25/24 06:42 05/25/24 06:30 05/25/24 06:15 Room Air 05/25/24 06:07 05/25/24 06:00 Room Air 05/25/24 05:45 Room Air 05/25/24 05:30 Room Air 05/25/24 05:24 Room Air 05/25/24 05:15 05/25/24 05:00 05/25/24 04:57 05/25/24 04:45 Room Air 05/25/24 04:30 05/25/24 04:16 Room Air 05/25/24 04:12 05/25/24 04:09 05/25/24 03:45 05/25/24 03:15 Room Air 05/25/24 02:45 Room Air 05/25/24 02:30 Room Air 05/25/24 02:15 Room Air 05/25/24 02:12 05/25/24 02:00 Room Air 05/25/24 01:51 05/25/24 01:45 Room Air 05/25/24 01:42 05/25/24 01:30 Room Air 05/25/24 01:24 05/25/24 01:15 Room Air 05/25/24 01:09 05/25/24 01:00 Room Air 05/25/24 00:58 05/25/24 00:39 Room Air 05/25/24 00:38 05/25/24 00:32 Room Air 05/25/24 00:30 05/25/24 00:24 05/25/24 00:22 05/25/24 00:18 Room Air 05/25/24 00:15 05/25/24 00:14 Room Air 05/25/24 00:14 Room Air 05/25/24 00:10 05/24/24 23:52 Room Air Laboratory Results Abnormal lab results 05/25/24 05/25/24 05/25/24 Range/Units 00:14 01:36 09:10 RBC 4.46 L 4.16 L (4.70-6.10) M/uL Hct 41.2 L (42.0-52.0) % MCH 35.4 H 34.9 H (25.0-34.0) pg MCHC 36.2 H (32.0-36.0) g/dL RDW Std Deviation 53.4 H 54.0 H (36.4-46.3) fL RDW Coeff of Keven 14.8 H 14.8 H (11.5-14.5) % Plt Count 124 L 105 L (130-400) K/uL Lymph # (Auto) 0.60 L 0.72 L (1.20-3.40) K/uL [place] # (Auto) 0.74 H 1.01 H (0.11-0.59) K/uL Sodium 135 L 135 L (136-145) mmol/L Anion Gap 12 H (3-11) Glucose 181 H (70-99(Fasting)) mg/dl Calcium 8.3 L (8.6-10.3) mg/dl Magnesium 1.4 L (1.7-2.4) mg/dl Total Bilirubin 1.4 H (0.2-1.0) mg/dl AST 106 H (13-39) U/L ALT 98 H (7-52) U/L Urine Protein 3+ H (Negative) Urine Glucose (UA) Trace H (Negative) Urine Ketones 1+ H (Negative) Urine Blood 3+ H (Negative) Urine RBC (Auto) 6-10 H (0-2) /hpf U Hyaline Cast (Auto) 3-5 H (0-2) /lpf Diagnostic Findings Head CT 05/25/24 00:15 Exam(s): CT HEAD Without Contrast EXAM: CT Head Without Intravenous Contrast CLINICAL HISTORY: Reason for exam: seizure. TECHNIQUE: Axial computed tomography images of the head/brain without intravenous contrast. Automated exposure control was utilized for the study. A dose lowering technique was utilized adhering to the principles of ALARA. COMPARISON: No relevant prior studies available. FINDINGS: Brain: Exam severely limited secondary to patient motion artifact. There are a whole portions of the brain parenchyma which are not seen projected toward the skull vertex. Visualized portions of the brain parenchyma however are negative for acute intracranial hemorrhage or infarct. No significant white matter disease. Ventricles: Unremarkable. No ventriculomegaly. Bones/joints: Unremarkable. No acute fracture. Soft tissues: Unremarkable. Sinuses: Unremarkable as visualized. No acute sinusitis. Mastoid air cells: Unremarkable as visualized. No mastoid effusion. IMPRESSION: Exam severely limited as described above Within the visualized portions of the brain parenchyma no acute intracranial abnormalities identified. Recommend repeat CT scan if there is continued clinical concern for acute intracranial abnormality. Electronically signed by: Rio Valles MD 05/25/24 01:24 AM Medications Administered Home Medications Medication Instructions Recorded Confirmed Last Taken No Known Home Medications 05/25/24 05/25/24 Unknown Active Medications Generic Name Dose Route Start Last Admin Trade Name Freq PRN Reason Stop Dose Admin Chlordiazepoxide HCl 50 mg 05/25/24 09:02 05/25/24 09:49 Chlordiazepoxide Hcl 25 Mg Cap PO 05/26/24 03:03 50 mg Q6H GENIA Administration Heparin Sodium (Porcine) 5,000 units 05/25/24 09:15 05/25/24 11:08 Heparin Sod 5,000 Unit/0.5 Ml Vial SQ 06/24/24 09:14 5,000 units Q12 GENIA Administration Sodium Chloride 1,000 mls @ 100 mls/hr 05/25/24 09:02 05/25/24 10:01 Nss IV 05/26/24 05:01 100 mls/hr .Q10H GENIA Administration Thiamine HCl 100 mg/ Syringe 10 mls @ 2 mls/min 05/25/24 09:15 05/25/24 10:01 IV 06/24/24 09:14 2 mls/min QAM GENIA Administration Folic Acid 1 mg/ Syringe 10 mls @ 5 mls/min 05/25/24 09:02 05/25/24 09:52 IV 06/24/24 09:01 5 mls/min QAM GENIA Administration Miscellaneous 1 each 05/25/24 09:15 05/25/24 11:10 Remove Nicoderm Patch N/A 06/24/24 09:14 Not Given [id number] GENIA Nicotine 1 patch 05/25/24 09:15 05/25/24 11:09 Nicotine 21 Mg/24 Hr Tdsy TD 06/24/24 09:14 1 patch QAM GENIA Administration
[2024-05-25] MEDS: HEPARIN SOD 5,000 UNIT/0.5 ML VIAL SQ SCH (11:08)
[2024-05-25] MEDS: NICOTINE 21 MG/24 HR TDSY TD SCH (11:09)
--- NOTE | 2024-05-25 12:39 | Hospitalist Progress Note ---
Date of Service May 25, 2024 Assessment & Plan (1) Alcohol withdrawal seizure with delirium: Plan: 43-year-old male with no significant past medical history with ongoing alcoholism drinking about 3/4th bottle of vodka daily for last 2 and half months and drank only 6 shots of vodka today, presents 05/25 with seizure episodes. As per they went to sleep around 9:30 PM and around 10:30 PM when she woke up she saw her having seizure episode with eyes rolled up and shaking, lasting for last about 30 seconds. And patient did not know that he had this episode. After 10 minutes again he had another episode and he bit his tongue and blood was coming from his mouth, this episode also lasted for 30 sec. There was no incontinence. called EMS and was brought in here. Earlier in the day patient fell in the bathroom couple of times and patient complains some soreness in his lower back. In the ER patient initially was treated with IV Keppra but as the came and told about alcoholism he was given IV benzodiazepines. Patient noted to be confused at presentation. Then he became more alert and oriented after benzo. Patient denied any headache, blurred vision, runny nose or sore throat or cough or fevers or chest pain or shortness of breath. As per while ambulating was very shaky. He is being managed for the following: Alcohol withdrawal seizures Alcohol abuse: Heavy drinking for last 2 and half months Drinks generally 3/4th of a bottle of vodka daily. 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 Had seizures with biting of the tongue during sleep (see above). CT head with no acute finding. UA negative for UTI, toxicology screen negative and alcohol level less than 10. EKG with sinus tachycardia. Continue with SERVANDO S protocol, Librium taper and as needed Ativan. Continue with thiamine and folic acid. Seizure precaution. Follow-up with EEG Discussed with neurology, likely withdrawal but MRI brain with and without recommended. No antiepileptics for now. MRI sent, follow. Monitor and replete electrolytes. Thrombocytopenia Transaminitis Likely secondary to chronic alcohol abuse. Trend labs. Send hepatitis panel for am. Tobacco abuse: Nicotine patch, ecouraged to quit. DVT prophylaxis: Heparin subcu. Monitor platelets Disposition: Telemetry Full code Admission and Anticipated Discharge Date Admission Date: May 25, 2024 Subjective Patient was seen and examined at bedside. Patient was lying in bed, on room air, sleepy, has received 3 mg Ativan per [facility] protocol just prior to my arrival. Patient is not oriented, denies pain. ROS not able in detail due to cognition status. Physical Exam Physical Exam: General- Not in distress, on RA, appears drowsy/lethargic Head- atraumatic Eyes- PERRL. ENT- oropharynx clear. Neck- supple, no JVD. Lungs- clear to auscultation no wheezing or crackles Heart- regular rhythm; no murmur, no gallop. tachy in 100s. Abdomen- normal bowel sounds, soft, nontender, no distension. Extremities- no pretibial edema, no erythema seen Neuro- PERRL, no facial palsy; no dysarthria; moves extremities. Skin- warm & dry Results & Data Results & Data Vital Signs (Past 12 Hours) Vital Signs Temp Pulse Pulse Resp BP BP Pulse Ox 05/25/24 11:13 95 H 154/100 H 96 05/25/24 10:00 36.8 C 100 H 20 142/95 H 97 05/25/24 09:30 05/25/24 09:29 36.9 C 100 H 22 171/108 H 97 05/25/24 09:02 05/25/24 08:58 20 124/75 97 05/25/24 08:52 107 H 05/25/24 08:48 37.3 C 91 H 18 157/106 H 97 05/25/24 07:06 92 H 21 96 05/25/24 06:46 130/91 05/25/24 06:46 130/91 05/25/24 06:46 130/91 05/25/24 06:42 94 H 24 95 05/25/24 06:30 130/82 05/25/24 06:15 99 H 22 130/92 95 05/25/24 06:07 92 H 05/25/24 06:00 89 19 145/82 H 97 05/25/24 05:45 90 22 131/90 94 05/25/24 05:30 93 H 24 125/88 94 05/25/24 05:24 05/25/24 05:15 141/90 H 05/25/24 05:00 136/93 05/25/24 04:57 93 H 24 97 05/25/24 04:45 93 H 23 137/99 96 05/25/24 04:30 148/101 H 05/25/24 04:16 125 H 24 160/99 H 97 05/25/24 04:12 112 H 17 05/25/24 04:09 106 H 20 05/25/24 03:45 154/106 H 05/25/24 03:15 101 H 19 149/105 H 95 05/25/24 02:45 97 H 23 141/94 H 95 05/25/24 02:30 112 H 23 151/95 H 93 05/25/24 02:15 101 H 21 138/97 97 05/25/24 02:12 104 H 15 97 05/25/24 02:00 105 H 19 150/95 H 94 05/25/24 01:51 110 H 22 94 05/25/24 01:45 108 H 23 155/97 H 92 05/25/24 01:42 105 H 19 95 05/25/24 01:30 113 H 21 144/96 H 92 05/25/24 01:24 117 H 20 95 05/25/24 01:15 117 H 19 139/100 95 05/25/24 01:09 111 H 19 94 05/25/24 01:00 120 H 16 93 05/25/24 00:58 149/104 H 05/25/24 00:39 120 H 18 96 05/25/24 00:38 119 H Pulse Ox O2 Del Method O2 Del Method 05/25/24 11:13 Room Air 05/25/24 10:00 Room Air 05/25/24 09:30 Room Air 05/25/24 09:29 Room Air 05/25/24 09:02 97 Room Air 05/25/24 08:58 Room Air 05/25/24 08:52 05/25/24 08:48 Room Air 05/25/24 07:06 05/25/24 06:46 05/25/24 06:46 05/25/24 06:46 05/25/24 06:42 05/25/24 06:30 05/25/24 06:15 Room Air 05/25/24 06:07 05/25/24 06:00 Room Air 05/25/24 05:45 Room Air 05/25/24 05:30 Room Air 05/25/24 05:24 Room Air 05/25/24 05:15 05/25/24 05:00 05/25/24 04:57 05/25/24 04:45 Room Air 05/25/24 04:30 05/25/24 04:16 Room Air 05/25/24 04:12 05/25/24 04:09 05/25/24 03:45 05/25/24 03:15 Room Air 05/25/24 02:45 Room Air 05/25/24 02:30 Room Air 05/25/24 02:15 Room Air 05/25/24 02:12 05/25/24 02:00 Room Air 05/25/24 01:51 05/25/24 01:45 Room Air 05/25/24 01:42 05/25/24 01:30 Room Air 05/25/24 01:24 05/25/24 01:15 Room Air 05/25/24 01:09 05/25/24 01:00 Room Air 05/25/24 00:58 05/25/24 00:39 Room Air 05/25/24 00:38
--- NOTE | 2024-05-25 13:13 | Electrocardiogram Report ---
Test Reason : Blood Pressure : */* mmHG Vent. Rate : 115 BPM Atrial Rate : 115 BPM P-R Int : 128 ms QRS Dur : 86 ms QT Int : 324 ms P-R-T Axes : 43 49 6 degrees QTcB Int : 448 ms Sinus tachycardia Otherwise normal ECG No previous ECGs available Confirmed by Zach Fenton ([id number]) on 05/25/2024 1:13:20 PM Referred By: REFERRED SELF Confirmed By: Zach Fenton
[2024-05-25] MEDS ORDERED: LABETALOL HCL IV 5 MG/ML 20ML IV PRN (16:04)
[2024-05-25] MEDS: GADOBUTROL 65ML VIAL IV ONE (18:36)
[2024-05-26] MEDS: ACETAMINOPHEN 325 MG TAB PO STA (02:20)
[2024-05-26] MEDS: LORazepam 1 MG in SYRINGE 0.5 ML IV PRN (02:32)
--- NOTE | 2024-05-26 06:51 | Electroencephalogram ---
EEG Procedure Note Date of Service May 25, 2024 Start / End Times Start Time: 1157 End Time: 1217 Referring Physician Kalyan Cornell History A 43 year old male with alcohol withdrawal seizures. EEG performed for evaluation of epileptiform activity. Home Medication List Medication Instructions Recorded Confirmed Type No Known Home Medications 05/25/24 05/25/24 History Inpatient Medication List Heparin Sodium (Porcine) (Heparin Sod 5,000 Unit/0.5 Ml Vial) 5,000 units SQ Q12 [facility] Stop: 06/24/24 09:14 Last Admin: 05/25/24 20:35 Dose: 5,000 units Documented By: Admin: 05/25/24 11:08 Dose: 5,000 units Documented By: AM Thiamine HCl 100 mg/ Syringe 10 mls @ 2 mls/min IV [facility] Stop: 06/24/24 09:14 Last Admin: 05/25/24 10:01 Dose: 2 mls/min Documented By: AM Folic Acid 1 mg/ Syringe 10 mls @ 5 mls/min IV [facility] Stop: 06/24/24 09:01 Last Admin: 05/25/24 09:52 Dose: 5 mls/min Documented By: AM Lorazepam 1 mg/ Syringe 1 mls @ 2 mls/min IV UD PRN; Protocol PRN Reason: EtOH Withdrawal AWSS Score 6,7 Stop: 06/24/24 09:01 Last Admin: 05/26/24 02:32 Dose: 2 mls/min Documented By: ASAEL Miscellaneous (Remove Nicoderm Patch) 1 each N/A DAILY@0859 [facility] Stop: 06/24/24 09:14 Last Admin: 05/25/24 11:10 Dose: Not Given Documented By: AM Nicotine (Nicotine 21 Mg/24 Hr Tdsy) 1 patch TD [facility] Stop: 06/24/24 09:14 Last Admin: 05/25/24 11:09 Dose: 1 patch Documented By: AM Discontinued Medications Acetaminophen (Acetaminophen 325 Mg Tab) 650 mg PO NOW STA Stop: 05/26/24 02:17 Last Admin: 05/26/24 02:20 Dose: 650 mg Documented By: ASAEL Chlordiazepoxide HCl (Chlordiazepoxide Hcl 25 Mg Cap) 50 mg PO NOW ONE Stop: 05/25/24 04:08 Last Admin: 05/25/24 04:13 Dose: 50 mg Documented By: TRACY Chlordiazepoxide HCl (Chlordiazepoxide Hcl 25 Mg Cap) 50 mg PO Q6H GENIA Stop: 05/26/24 03:03 Last Admin: 05/26/24 03:54 Dose: 50 mg Documented By: Admin: 05/25/24 20:35 Dose: 50 mg Documented By: Admin: 05/25/24 16:32 Dose: 50 mg Documented By: Admin: 05/25/24 09:49 Dose: 50 mg Documented By: GERI Gadobutrol (Gadobutrol 65ml Vial) 8 ml IV ONCE ONE Stop: 05/25/24 18:36 Last Admin: 05/25/24 18:36 Dose: 8 ml Documented By: CATRACHO Sodium Chloride (Nss) 500 mls @ 999 mls/hr IV .Q31M ONE Stop: 05/25/24 01:12 Last Infusion: 05/25/24 02:07 Dose: Infused Documented By: Admin: 05/25/24 01:01 Dose: 999 mls/hr Documented By: TRACY Multivitamins 10 ml/ Thiamine HCl 100 mg/ Folic Acid 1 mg/Sodium Chloride 1,011.2 mls @ 500 mls/hr IV .Q2H2M ONE Stop: 05/25/24 02:43 Last Infusion: 05/25/24 03:30 Dose: Infused Documented By: Admin: 05/25/24 01:10 Dose: 500 mls/hr Documented By: KIMBERLY Magnesium Sulfate/Dextrose (Magnesium Sulfate / D5w) 1 gm in 100 mls @ 100 mls/hr IV NOW STA Stop: 05/25/24 01:50 Last Infusion: 05/25/24 02:07 Dose: Infused Documented By: Admin: 05/25/24 01:01 Dose: 100 mls/hr Documented By: TRACY Magnesium Sulfate/Dextrose (Magnesium Sulfate / D5w) 1 gm in 100 mls @ 50 mls/hr IV ONE ONE Stop: 05/25/24 07:49 Last Infusion: 05/25/24 09:10 Dose: Infused Documented By: Admin: 05/25/24 06:16 Dose: 50 mls/hr Documented By: TRACY Sodium Chloride (Nss) 1,000 mls @ 100 mls/hr IV .Q10H GENIA Stop: 05/26/24 05:01 Last Infusion: 05/26/24 05:48 Dose: Infused Documented By: Admin: 05/25/24 20:32 Dose: 100 mls/hr Documented By: Infusion: 05/25/24 20:08 Dose: Infused Documented By: Admin: 05/25/24 10:01 Dose: 100 mls/hr Documented By: AM Lorazepam 3 mg/ Syringe 3 mls @ 2 mls/min IV ONCE PRN; Protocol PRN Reason: EtOH Withdrawal AWSS Score 10+ Last Admin: 05/25/24 09:45 Dose: 2 mls/min Documented By: AM Levetiracetam (Levetiracetam 500 Mg/5 Ml Vial) 1,000 mg IV NOW STA Stop: 05/25/24 00:28 Last Admin: 05/25/24 00:35 Dose: 1,000 mg Documented By: TRACY Lorazepam (Lorazepam 1 Mg/1 Ml Syr Ed Inj Use) Confirm Administered Dose 2 mg .ROUTE .STK-MED ONE Stop: 05/25/24 00:22 Last Admin: 05/25/24 00:22 Dose: 2 mg Documented By: TRACY Lorazepam (Lorazepam 1 Mg/1 Ml Syr Ed Inj Use) Confirm Administered Dose 1 mg .ROUTE .STK-MED ONE Stop: 05/25/24 00:43 Last Admin: 05/25/24 01:00 Dose: Not Given Documented By: TRACY Lorazepam (Lorazepam 1 Mg/1 Ml Syr Ed Inj Use) 1 mg IV ONE STA Stop: 05/25/24 00:43 Last Admin: 05/25/24 00:42 Dose: 1 mg Documented By: TRACY Lorazepam (Lorazepam 1 Mg/1 Ml Syr Ed Inj Use) 2 mg IV ONE STA Stop: 05/25/24 01:09 Last Admin: 05/25/24 01:13 Dose: Not Given Documented By: TRACY Description This is a 21 electrode EEG with a single channel dedicated to limited EKG. The electrodes were placed in accordance with the International 10-20 system. REPORT: At the onset of the EEG, the patient is awake. The background activity consists of 10-11 Hz, persistent, posteriorly dominant, moderate amplitude, symmetric and rhythmic activity that is reactive to eye opening with intermixed 15-25 Hz, 10-20 uV, beta activity. Anteriorly, it consists of a mixture of low voltage indeterminate activity and 15-25Hz, persistent, low amplitude, symmetric and rhythmic activity. Stepwise intermittent photic stimulation (1-23 Hz) does not induce any abnormalities. Hyperventilation is not performed. Drowsiness is characterized by low amplitude mixed frequency activity, roving eye movements, and decreased eye blinking and muscle artifact. Interpretation IMPRESSION: This is a normal awake and drowsy EEG. Excessive beta activity is a normal variant and can be seen as a medication effect, ie benzodiazepines and barbiturates. There is no evidence of focal slowing or epileptiform activity. ul.
[2024-05-26] MEDS ORDERED: chlordiazePOXIDE HCl 25 MG CAP PO SCH (07:45)
--- NOTE | 2024-05-26 07:50 | Magnetic Resonance Report ---
Brain MRI WITH AND WITHOUT CONTRAST HISTORY: seizure, r/o other pathology TECHNIQUE: Multiplanar multisequence MRI of the brain was performed both before and after the intrave nous administration of contrast. COMPARISON STUDY: Head CT 05/25/2024. FINDINGS: Motion artifact. There are no areas of restricted diffusion to suggest acute infarction. Th e midline structures are intact. The paranasal sinuses are clear. The mastoid air cells are clear. Th e ventricles and sulci are within normal limits for age. There is no mass, hematoma, midline shift. T he major vascular flow-voids at the skull base are well maintained. Postcontrast sequences show no ar eas of abnormal enhancement. There are few scattered punctate foci of T2 hyperintensity seen within t he subcortical white matter. These are nonspecific but could represent early microvascular ischemic c hanges or possibly migraines. There is also a focus of T2 hyperintensity within the left frontal lobe high convexity best seen on coronal FLAIR image 13 measuring 1 cm. This involves the cortex/subcorti pushpa white matter. No associated enhancement. This is indeterminate. No evidence for selby matter heter otopia. The medial temporal lobes are symmetric. IMPRESSION: 1. Motion artifact. No definite acute infarct or intracranial hemorrhage. 2. An indeterminate 1 cm T2 hyperintense focus within the cortex/subcortical white matter of the left frontal lobe high convexity. Follow-up brain MRI in 3 months is recommended to ensure stability/reso lution. This could represent a small seizure focus or less likely a small intracranial lesion. 3. A few scattered punctate foci of T2 hyperintensity within the subcortical white matter which are n onspecific but can be seen in the setting of early microvascular ischemic change or migraines. Lyme d isease or a demyelinating disease are considered less likely. ACT 112: Negative or not required by law. Electronically signed by: Hilario Moran M.D. 05/26/2024 7:48 AM
--- NOTE | 2024-05-26 11:25 | Discharge Summary ---
Date of Service May 26, 2024 Admission HPI Per Admitting Provider 43-year-old male with no significant past medical history with ongoing alcoholism drinking about 3/4th bottle of vodka daily for last 2 and half months and drank only 6 shots of vodka today, presents with seizure episodes. As per they went to sleep around 9:30 PM and around 10:30 PM when she woke up she saw her having seizure episode with eyes rolled up and shaking it lasting for last about 30 seconds. And patient did not know that he had this episode. After 10 minutes again he had another episode and he bit his tongue and blood was coming from his mouth, this episode also lasted for 30 minutes. There was no incontinence. called EMS and was brought in here. Earlier in the day patient fell in the bathroom couple of times and patient complains some soreness in his lower back. In the ER patient initially was treated with IV Keppra but as the came and told about alcoholism he was given IV benzodiazepines. CT head was poor study but was okay. Initially patient was confused. But currently more alert and awake and says he is feeling better. He knows that he is in the hospital. He knows his name. Knows the year but could not tell the month. Denies any headache. Denies any blurred vision. No runny nose or sore throat or cough. No fevers. No chest pain or shortness of breath. No nausea. No abdominal pain. Normal bowel and bladder movements. As per while ambulating was very shaky. Patient wanted to go home but when told about the complications of the alcohol seizures he agreed to stay. Past med history. None as per patient. Past surgical history none as per patient. Social history. Smoking 1 pack a day for last 16 years. Currently alcohol drinking 3/4 bottle of vodka since last 2-1/2 months and prior to that he is to drink every other weekend as per . No marijuana, no drugs. Family history. Significant for diabetes as per patient Admission Exam Per Admitting Provider General- Not in distress Head- atraumatic Eyes- PERRL. ENT- oropharynx clear. Dry blood seen around mouth Neck- supple, no JVD. Lungs- clear to auscultation no wheezing or crackles Heart- regular rhythm; no murmur, no gallop. Abdomen- normal bowel sounds, soft, nontender, no distension. Extremities- no pretibial edema, no erythema seen Neuro- alert, oriented ; PERRL, no facial palsy; no dysarthria; moves extremities. Skin- warm & dry Principal Diagnosis Likely alcohol withdrawal seizure Discharge Exam Pt left AMA prior to undersigned joined for the work today. Discharge Data Allergies Allergy/AdvReac Type Severity Reaction Status Date / Time No Known Allergies Allergy Verified 05/25/24 00:35 Consultations 05/25/24 01:53 ED Decision to Admit Stat 05/25/24 09:02 Consult Neurology Routine Ordered Studies 05/25/24 00:15 CT head/brain wo con Stat 05/25/24 13:04 MRI Brain [MR brain wo/w con] Routine Hospital Course (1) Alcohol withdrawal seizure with delirium: 43-year-old male with no significant past medical history with ongoing alcoholism drinking about 3/4th bottle of vodka daily for last 2 and half months and drank only 6 shots of vodka today, presents 05/25 with seizure episodes. As per they went to sleep around 9:30 PM and around 10:30 PM when she woke up she saw her having seizure episode with eyes rolled up and shaking, lasting for last about 30 seconds. And patient did not know that he had this episode. After 10 minutes again he had another episode and he bit his tongue and blood was coming from his mouth, this episode also lasted for 30 sec. There was no incontinence. called EMS and was brought in here. Earlier in the day patient fell in the bathroom couple of times and patient complains some soreness in his lower back. In the ER patient initially was treated with IV Keppra but as the came and told about alcoholism he was given IV benzodiazepines. Patient noted to be confused at presentation. Then he became more alert and oriented after benzo. Patient denied any headache, blurred vision, runny nose or sore throat or cough or fevers or chest pain or shortness of breath. As per while ambulating was very shaky. He was being managed for the following: Alcohol withdrawal seizures Alcohol abuse: Heavy drinking for last 2 and half months Drinks generally 3/4th of a bottle of vodka daily. 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 Had seizures with biting of the tongue during sleep (see above). CT head with no acute finding. UA negative for UTI, toxicology screen negative and alcohol level less than 10. EKG with sinus tachycardia. Continue with SERVANDO S protocol, Librium taper and as needed Ativan. Continue with thiamine and folic acid. Seizure precaution. Follow-up with EEG Discussed with neurology, likely withdrawal but MRI brain with and without recommended. No antiepileptics for now. MRI sent, follow. Monitor and replete electrolytes. Thrombocytopenia Transaminitis Likely secondary to chronic alcohol abuse. Trend labs. Send hepatitis panel for am. Tobacco abuse: Nicotine patch, ecouraged to quit. DVT prophylaxis: Heparin subcu. 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 Pt was not seen. Home Health Attestation I certify that this patient is under my care and that I, or a physicians assistant therapy aide working with me, had a face to-face encounter that meets the home health [id number] encounter requirements with this patient. The encounter with the patient was in whole, or in part, for the following medical condition, which is the primary reason for home health care (list medical condition): I certify that, based on my findings, the following services are medically necessary home health services: My clinical findings support the need for the above services because: Further, I certify that my clinical findings support that this patient is homebound (i.e. absences from home require considerable and taxing effort and are for medical reasons or latter day services or infrequently or of short duration when for other reasons) because: Certification for Home Health Services: Based on the above findings, I certify that this patient is confined to the home and needs intermittent fdc care, physical therapy and/or speech therapy or continues to need occupational therapy. The patient is under my care, and I have initiated the establishment of the plan of care. This patient will be followed by a physician who will periodically review the plan of care. Total Time Total Time Spent Total Time Spent (In Minutes): 15 Discharge Plan Discharge Items Patient Disposition: Against Medical Advice Reason For Visit: shelia withdrwal seizure Activity: As commented below Activity Comment: left ama Non-emergency contact: Primary Care Provider Follow-up/Referrals: PCP,NO [Primary Care Provider] - Pending Studies at Discharge: Yes Stand-Alone Forms: My [facility], Smoking Cessation Medications and DC Order Prescriptions: No Action No Known Home Medications Discharge Orders: Left Against Medical Advice (Routine); Ordered 05/26/24 Ordered By: Erasmo Frey Admission Data Admit Date/Time: 05/25/24 05:38 Attending Provider: Erasmo Frey Admit Provider: Kalyan Cornell Primary Care Provider: PCP,NO Other Providers: Kalyan Cornell; Jackie Arzate; Torrey Lindsay; Jackie Daniel; Venu hCou; Mohamud Jc; Anurag Valadez; Nils Wong; Dominique Orlando; Abelardo Park; Trevin Leary; Isis Chavis; Ayo Padgett; Marissa Quintero; Odessa Lassiter; Nils Srivastava
[2024-05-27] MEDS ORDERED: chlordiazePOXIDE HCl 25 MG CAP PO SCH (07:45)
--- NOTE | 2024-05-28 08:46 | Coding Query ---
CODING QUERY To promote full compliance with coding requirements relating to patient care, provider participation is requested in all cases of lubrication technician uncertainty. Please assist us with the question(s) below: Clinical Indicators: History and Physical: * 43-year-old male with no significant past medical history with ongoing alcoholism drinking about 3/4th bottle of vodka daily for last 2 and half months * Alcohol withdrawal seizures * Initially received IV Keppra and later IV Ativan in the ER Progress Note 05/25/2024: * Alcohol abuse: Heavy drinking for last 2 and half months Discharge Summary: * Alcohol withdrawal seizure with delirium * Thrombocytopenia and Transaminitis: Likely secondary to chronic alcohol abuse Coding Question(s): Are you able to clarify the withdrawal of alcohol as: ( ) Alcohol dependence with withdrawal delirium ( ) Alcohol abuse with withdrawal delirium ( x) Other (please specify): Alcohol abuse complicated w/ withdrawal seizure and delirium ( ) Unable to determine. Thank you Angelique Dove Principal Diagnosis: "that condition established after study, to be chiefly responsible for occasioning the admission of the patient to the hospital for care." Co-Existing Principal Diagnosis: "when two or more diagnoses equally meet the criteria for principal diagnosis as determined by the circumstances of admission, diagnostic work up, and/or therapy provided, and the Alphabetic Index, Tabular List, or another coding guideline does not provide sequencing direction, any one of the diagnoses may be sequenced first." "When the physician has documented what appears to be a current diagnosis in the body of the record, but has not included the diagnosis in the final diagnostic statement, the physician should be asked whether the diagnosis should be added." (Source Coding [facility] 2 QTR90. p3-4) TK
== END 2024-05-26 06:30 | disposition left against medical advice (07) | DRG 894 ==
LOC: ED 00:02 → 2E 05:38